=== PATIENT | male | born 1995 | race Caucasian/White ===

== ENCOUNTER → 2025-02-26 | Outpatient (CLI) | payer BC, SELFPAY ==
--- NOTE | 2025-02-26 10:23 | XR_ITS ---
Examination: Right ankle 2 views Technique one AP lateral right ankle 2 views Date and time: 12/27/2024 1044 hours INDICATIONS: Right ankle pain beginning 4 days ago. FINDINGS: No fracture or dislocation. Early osteoarthritis tibiotalar joint IMPRESSION: Early osteoarthritis tibiotalar joint No fracture
== END | disposition home or self-care (01) ==
LOC: CDIM 09:57
PROVIDERS: PCP Family Medicine; Referring Provider Nurse Practitioner Family; Visit Provider Nurse Practitioner Family
DX: M19.071 Primary osteoarthritis, right ankle and foot (principal)
CPT/HCPCS: 73600